=== PATIENT | female | born 1975 | race Caucasian/White ===

== ENCOUNTER 2020-02-16 16:35 | Emergency (ER) | payer MEDICARE, MEDICAID ==
--- NOTE | 2020-02-16 17:20 | ER Document Report ---
ED Medical Screen (RME) - General Chief Complaint: Low Blood Sugar Stated Complaint: POSSIBLE LOW BLOOD SUGAR Time Seen by Provider: 02/16/20 17:11 Information source: Patient Notes: Patient states that she took her insulin 30 units of NovoLog at 11 but did not eat her meal in time and her blood sugar dropped. Patient states that her blood sugar dropped to 20. EMS was called and they gave her D10 infusion and her blood sugar came up to 158 and then dropped again to 37 and patient was given an additional dose of D10 infusion. Patient presently denies any complaints at this time. Patient states that she did not get to eat anything today. Patient has a history of hypertension, diabetes, dyslipidemia and degenerative disc disease. I have greeted and performed a rapid initial assessment of this patient. A comprehensive ED assessment and evaluation of the patient, analysis of test results and completion of the medical decision making process will be conducted by additional ED providers. Physical Exam - General General appearance: Appears well, Alert In distress: None Course - Laboratory Laboratory results interpreted by me: 02/16/20 16:39 POC Glucose 138 H
[2020-02-16 17:28] LABS: ABSOLUTE LYMPHOCYTES (AUTO) 1.1 10^3/uL (0.5-4.7); ABSOLUTE MONOCYTES (AUTO) 0.7 10^3/uL (0.1-1.4); ABSOLUTE NEUT (AUTO) 18.1 10^3/uL (1.7-8.2); BASOPHILS % (AUTO) 0.1 % (0-2); EOSINOPHILS % (AUTO) 0.2 % (0-6); LYMPHOCYTES % (AUTO) 5.4 % (13-45); MEAN CORPUSCULAR HEMOGLOBIN 24.4 pg (27.0-33.4); MEAN CORPUSCULAR VOLUME 79 fl (80-97); MONOCYTES % (AUTO) 3.4 % (3-13); PLATELET COUNT 325 10^3/uL (150-450); RED BLOOD COUNT 5.34 10^6/uL (3.72-5.28); RED CELL DISTRIBUTION WIDTH 19.9 % (11.5-14.0); SEGMENTED NEUTROPHILS % (AUTO) 90.9 % (42-78); TOTAL CELLS COUNTED % (AUTO) 100 %; WHITE BLOOD COUNT 19.9 10^3/uL (4.0-10.5)
[2020-02-16 17:45] LABS: ANION GAP 12 (5-19); BLOOD UREA NITROGEN 13 mg/dL (7-20); CALCIUM 9.4 mg/dL (8.4-10.2); CARBON DIOXIDE 27 mmol/L (22-30); CHLORIDE 96 mmol/L (98-107); POTASSIUM 3.5 mmol/L (3.6-5.0)
[2020-02-16 17:57] LABS: GLUCOSE 68 mg/dL (75-110)
--- NOTE | 2020-02-16 18:10 | ER Document Report ---
ED Blood Sugar Problem - General Chief Complaint: Low Blood Sugar Stated Complaint: POSSIBLE LOW BLOOD SUGAR Time Seen by Provider: 02/16/20 17:11 - HPI Notes: Patient is a 44-year-old female with a past medical history of diabetes who presents with an episode of low blood sugar. Patient states she is visiting from out of town. She was preparing dinner and had an episode of her chronic back pain. Patient states she took 15 mg of her oxycodone. She takes 15 mg 4 times a day. She did not take any more than prescribed. Patient states that she also took her NovoLog. She became busy cooking dinner and did not eat in time after taking the NovoLog. Patient states she went in the shower. She began to feel lightheaded and had a syncopal event. She states she did hit her head but denies any pain now. No pain in her neck either. Patient's family called EMS. Her blood sugar was 20. They gave her medication as documented by the nursing staff. They also gave her Narcan. Patient is awake and alert. Denying any symptoms. She is eating and drinking in the room. Patient states she also takes Metformin and glimepiride but she has not taken any of those pills today. The last time she took the pills was yesterday morning. - Related Data Allergies/Adverse Reactions: acetaminophen [From Tylenol] Allergy (Verified 02/16/20 17:42) Past Medical History - General Information source: Patient - Social History Smoking Status: Never Smoker Chew tobacco use (# tins/day): No Frequency of alcohol use: None Drug Abuse: None Family History: Reviewed & Not Pertinent Patient has homicidal ideation: No - Past Medical History Cardiac Medical History: Reports: Hx Hypercholesterolemia, Hx Hypertension Endocrine Medical History: Reports: Hx Diabetes Mellitus Type 2 Review of Systems - Review of Systems Notes: CONSTITUTIONAL: No fever, fatigue or weight loss. SKIN: No rash. HENT: No congestion, ear pain, or sore throat. EYES: No recent vision problems or eye pain. CARDIOVASCULAR: No chest pain or edema. RESPIRATORY: No cough, shortness of breath, congestion, or wheezing. GASTROINTESTINAL: No abdominal pain, nausea, vomiting, bloody stools or diarrhea. GENITOURINARY: No dysuria. MUSCULOSKELETAL: No joint pain or swelling. NEUROLOGIC: No seizures. No headache, focal weakness or sensory changes. HEMATOLOGIC: No unusual bruising or bleeding. PSYCHIATRIC: No depression or anxiety. Physical Exam - Vital signs Vitals: Temp 97.7 F 02/16/20 16:35 - General General appearance: Appears well Notes: VITAL SIGNS: Within normal limits. GENERAL: No acute distress, non-toxic appearance. HEAD: Normal with no signs of head trauma. EYES: EOMI, conjunctiva normal, no discharge. EARS: Hearing grossly intact. NOSE: Normal. NECK: Normal range of motion, no tenderness, supple, no lymphadenopathy, No adenopathy, no JVD. CHEST: Clear breath sounds bilaterally. No wheezes, rales, or rhonchi. CARDIAC: Regular rate and rhythm. S1 and S2, without murmurs, gallops, or rubs. VASCULAR: No Edema. ABDOMEN: Normal and soft with no tenderness. MUSCULOSKELETAL: Good range of motion of all major joints. Extremities without clubbing, cyanosis or edema. NEUROLOGICAL: Alert and oriented x 3. No focal sensory or strength deficits. Speech normal. Follows commands appropriately. PSYCHIATRIC: Normal Affect, judgement and mood. SKIN: Normal appearance with no rashes or lesions. Course - Re-evaluation Re-evalutation: 02/16/20 19:42 Blood sugar was improved after EMS treatment. She was eating in the room. Her repeat blood sugar did show 68. She was given a sandwich and more juice. She continues to be in no acute distress. Her mentation is normal. Another repeat blood sugar showed a glucose of 47. Patient denies taking her glimepiride today. She states she only took her NovoLog so I do not believe this is an effect from a long-acting insulin. She did take 30 units of the NovoLog. Does have a leukocytosis but I do think this is likely reactive from the episode as her urine and chest x-ray are normal and there is no obvious signs of infection. I will continue to monitor her and recheck her blood sugar after she gets a full meal. Will likely be signed out to my colleague at the end of my shift. - Vital Signs Vital signs: Temp Pulse Resp BP Pulse Ox 97.6 F 18 111/67 100 02/16/20 22:10 02/16/20 22:10 02/16/20 22:10 02/16/20 22:10 - Laboratory Result Diagrams: 02/16/20 17:22 02/16/20 17:22 Laboratory results interpreted by me: 02/16/20 02/16/20 02/16/20 16:39 16:59 17:22 WBC 19.9 H RBC 5.34 H MCV 79 L MCH 24.4 L MCHC 31.0 L RDW 19.9 H Lymph % (Auto) 5.4 L Absolute Neuts (auto) 18.1 H Seg Neutrophils % 90.9 H Sodium Potassium Chloride Glucose POC Glucose 138 H Urine Glucose (UA) >=500 H 02/16/20 02/16/20 02/16/20 17:22 19:20 21:26 WBC RBC MCV MCH MCHC RDW Lymph % (Auto) Absolute Neuts (auto) Seg Neutrophils % Sodium 134.8 L Potassium 3.5 L Chloride 96 L Glucose 68 L POC Glucose 47 L 234 H Urine Glucose (UA) 02/16/20 22:08 WBC RBC MCV MCH MCHC RDW Lymph % (Auto) Absolute Neuts (auto) Seg Neutrophils % Sodium Potassium Chloride Glucose POC Glucose 213 H Urine Glucose (UA) - Diagnostic Test Radiology reviewed: Image reviewed, Reports reviewed - EKG Interpretation by Me EKG shows normal: Sinus rhythm Rate: Tachycardia Rhythm: NSR When compared to previous EKG there are: Previous EKG unavailable Additional EKG results interpreted by me: 02/16/20 19:44 Sinus tachycardia at a rate of 104. QTc 479. No acute ST changes. No previous EKG available for comparison. Discharge - Discharge Clinical Impression: Hypoglycemia Leukocytosis Qualifiers: Leukocytosis type: unspecified Qualified Code(s): D72.829 - Elevated white blood cell count, unspecified Condition: Stable Disposition: OTHER Instructions: Hypoglycemia ([facility]) Additional Instructions: Your work-up today is reassuring. Please eat regular meals. Please check your sugar at home several times a day and keep a record of this for your family doctor. Please return to the ER for any return of symptoms. Follow-up with your PCP to discuss insulin and blood sugar dosing.
[2020-02-16 18:32] LABS: APPEARANCE,URINE CLEAR; BILIRUBIN,URINE NEGATIVE (NEGATIVE); COLOR,URINE YELLOW; GLUCOSE, URINE >=500 mg/dL (NEGATIVE); KETONES,URINE NEGATIVE (NEGATIVE); LEUKOCYTE ESTERASE,URINE NEGATIVE (NEGATIVE); NITRITE,URINE NEGATIVE (NEGATIVE); PROTEIN,URINE NEGATIVE (NEGATIVE); URINE SPECIFIC GRAVITY 1.005; UROBILINOGEN,URINE NEGATIVE mg/dL (<2.0)
--- NOTE | 2020-02-16 18:34 | RADIOLOGY REPORT (SQ) ---
EXAM DESCRIPTION: CHEST SINGLE VIEW IMAGES COMPLETED DATE/TIME: 02/16/2020 6:19 pm REASON FOR STUDY: AMS COMPARISON: None. EXAM PARAMETERS: NUMBER OF VIEWS: One view. TECHNIQUE: Single frontal radiographic view of the chest acquired. RADIATION DOSE: NA LIMITATIONS: None. FINDINGS: LUNGS AND PLEURA: No opacities, masses or pneumothorax. No pleural effusion. MEDIASTINUM AND HILAR STRUCTURES: No masses. Contour normal. HEART AND VASCULAR STRUCTURES: Heart normal in size. Normal vasculature. BONES: No acute findings. HARDWARE: None in the chest. OTHER: No other significant finding. IMPRESSION: NO ACUTE RADIOGRAPHIC FINDING IN THE CHEST. TECHNICAL DOCUMENTATION: JOB ID: [id number] 2010 [employer]- All Rights Reserved Reading location - IP/workstation name: [email or web address]
[2020-02-16] MEDS ORDERED: POTASSIUM CHLORIDE 10 MEQ TABLET.ER PO ONE (18:47)
--- NOTE | 2020-02-16 19:30 | RADIOLOGY REPORT (SQ) ---
EXAM DESCRIPTION: CT HEAD WITHOUT IMAGES COMPLETED DATE/TIME: 02/16/2020 6:12 pm REASON FOR STUDY: syncope, head injury COMPARISON: None. TECHNIQUE: Axial images acquired through the brain without intravenous contrast. Images reviewed wi th bone, brain and subdural windows. Additional sagittal and coronal reconstructions were generated. Images stored on PACS. All CT scanners at this facility use dose modulation, iterative reconstruction, and/or weight based d osing when appropriate to reduce radiation dose to as low as reasonably achievable (ALARA). [facility]: Dose Right [facility]: CareDose [facility]: Dose Right [facility]: Teradose 4D [facility]: [employer] RADIATION DOSE: CT Rad equipment meets quality standard of care and radiation dose reduction techniq ues were employed. CTDIvol: 53.2 mGy. DLP: 937 mGy-cm. mGy. LIMITATIONS: None. FINDINGS: VENTRICLES: Normal size and contour. CEREBRUM: No masses. No hemorrhage. No midline shift. No evidence for acute infarction. Normal gra y/white matter differentiation. No areas of low density in the white matter. CEREBELLUM: No masses. No hemorrhage. No alteration of density. No evidence for acute infarction. EXTRAAXIAL SPACES: No fluid collections. No masses. ORBITS AND GLOBE: No intra- or extraconal masses. Normal contour of globe without masses. CALVARIUM: No fracture. PARANASAL SINUSES: No fluid or mucosal thickening. SOFT TISSUES: No mass or hematoma. OTHER: No other significant finding. IMPRESSION: NO ACUTE INTRACRANIAL IMAGING FINDINGS. EVIDENCE OF ACUTE STROKE: NO. COMMENT: Quality ID # [id number]: Final reports with documentation of one or more dose reduction techniques (e.g., Automated exposure control, adjustment of the mA and/or kV according to patient size, use of iterative reconstruction technique) TECHNICAL DOCUMENTATION: JOB ID: [id number] 2010 [employer]- All Rights Reserved Reading location - IP/workstation name: [email or web address]
[2020-02-16 22:43] VITALS: BP 111/67
--- NOTE | 2020-02-16 23:03 | EKG REPORT ---
SEVERITY:- OTHERWISE NORMAL ECG - SINUS TACHYCARDIA : Confirmed by: Troy Duque MD 16-Feb-2020 23:02:28
== END 2020-02-16 22:10 | disposition other institution (70) ==
LOC: ER 16:35
DX: E11.649 Type 2 diabetes mellitus with hypoglycemia without coma (principal); D72.829 Elevated white blood cell count, unspecified; R42 Dizziness and giddiness; R55 Syncope and collapse; Z79.4 Long term (current) use of insulin; E78.00 Pure hypercholesterolemia, unspecified; I10 Essential (primary) hypertension; Z88.6 Allergy status to analgesic agent
CPT/HCPCS: 93005; 99285; 36415; 87086; 82962; 85025; 81025; 80048; 81001; 84484; 71045; 70450; 93010; A9270